=== PATIENT | male | born 1945 | race Caucasian/White ===

== ENCOUNTER 2016-08-01 19:46 | Observation (INO) ==
[2016-08-01] MEDS ORDERED: 0.9 % Sodium Chloride 1,000 ML IVC ONE (20:15)
--- NOTE | 2016-08-01 20:33 | Emergency Department Note ---
Disposition Clinical Impression: Altered mental status Qualifiers: Altered mental status type: disorientation Qualified Code(s): R41.0 - Disorientation, unspecified Disposition: Admitted As Inpatient Condition: Fair Referrals: NO,PCP [Primary Care Provider] - Time of Disposition: 21:23 General Adult HPI - General Stated complaint: confusion Time Seen by Provider: 08/01/16 19:49 Source: EMS Limitations: altered mental status Nursing Notes Reviewed: Yes Vital Signs Reviewed: Yes - History of Present Illness HPI Narrative: 71-year-old with history of confusion. Patient lives at home. Patient was found confused. He was awake alert. He cannot recall any specific event. He is confused to the time of the year. He has no specific pain. Pain Scale: 0 - Related Data Home Medications Medication Instructions Recorded Confirmed Amlodipine Besylate 0 mg PO DAILY 04/15/15 04/15/15 Atenolol [Tenormin] 0 mg PO DAILY 04/15/15 04/15/15 Benazepril HCl [Lotensin] 0 mg PO DAILY 04/15/15 04/15/15 Famotidine [Acid Director Patient [employer] Services] 0 mg PO BID 04/15/15 04/15/15 HYDROcodone/Acet 5/325 mg [[place] 1 tab PO TID 04/15/15 04/15/15 5-325 mg] Pravastatin Sodium 0 mg PO DAILY 04/15/15 04/15/15 Allergies Allergy/AdvReac Type Severity Reaction Status Date / Time No Known Allergies Allergy Verified 04/15/15 09:57 Limitations: ROS unobtainable due to patients medical condition Past Medical History - Past Medical History Medical history: Reports: arthritis, coronary artery disease, hypertension, other Surgical history: Reports: no surgical history Psychiatric history: Reports: no psych history - Social History Smoking Status: Current every day smoker Smokeless Tobacco Status: No Alcohol use: Reports: none Drug use: Reports: none Physical Exam - General Limitations: altered mental status General appearance: alert, in no apparent distress, other - Head Head exam: atraumatic, normocephalic, normal inspection - ENT ENT exam: normal exam, normal oropharynx, mucous membranes moist - Chest Chest inspection: Present: normal inspection, symmetric chest wall rise - Respiratory Respiratory exam: Present: normal lung sounds bilaterally - Cardiovascular Cardiovascular exam: Present: regular rate, normal rhythm, normal heart sounds - Abdominal Exam Abdominal exam: Present: soft, Non-Tender. Absent: tenderness, distention, guarding, rebound, rigidity - Extremities Exam Extremities exam: Present: normal inspection, full ROM. Absent: tenderness, pedal edema - Expanded Lower Extremity Exam Neurovascular/Tendon exam: Absent: motor deficit, sensory deficit, tendon deficit - Back Exam Back exam: Present: normal inspection, full ROM. Absent: tenderness - Neurological Exam Neurological exam: Present: alert, oriented X3 - Expanded Neurological Exam Patient oriented to: Present: person - Psychiatric Psychiatric exam: Present: normal affect - Skin Skin exam: Present: warm, dry, intact, normal color Course Vital Signs Temperature 98.6 F 08/01/16 19:55 Pulse Rate 76 08/01/16 19:55 Respiratory Rate 16 08/01/16 19:55 Blood Pressure 177/81 08/01/16 19:55 O2 Sat by Pulse Oximetry 96 08/01/16 19:55 Temperature 98.6 F 08/01/16 19:55 Pulse Rate 73 08/01/16 21:15 Respiratory Rate 18 08/01/16 21:15 Blood Pressure 146/78 08/01/16 21:15 O2 Sat by Pulse Oximetry 95 08/01/16 21:15 Oxygen Delivery Oxygen Delivery Room Air Medical Decision Making - [facility] Narrative Medical decision making narrative: Diagnosis. Acute confusional state ED course patient was given IV fluids. Ativan 1 mg IV given. This seems to calm the patient down. Plan. Observation. Patient has positive opiates on his drug screen. It was no family member that we can reach. - Lab Data Lab results reviewed: Yes I reviewed the patient's lab results. Result diagrams: 08/01/16 20:22 08/01/16 20:22 Lab Results 08/01/16 08/01/16 08/01/16 Range/Units 20:22 20:22 20:22 WBC 11.5 H (4.3-11.1) K/mcL RBC 4.22 (4.19-5.50) M/mcL Hgb 13.4 (12.9-16.9) g/dL Hct 38.8 (37.5-50.1) % MCV 91.9 (83.0-100.0) fL MCH 31.8 (28.0-33.3) pg MCHC 34.5 (31.6-35.5) g/dL RDW 13.2 (11.5-14.5) % Plt Count 241 (140-400) K/mcL MPV 10.4 (9.4-12.4) fL Immature Gran % 0.6 (0-4) % Seg Neutrophils % 81.1 % Lymphocytes % 11.3 % Monocytes % 5.5 % Eosinophils % 1.3 % Basophils % 0.2 % Neutrophils # 9.3 H (1.6-8.9) K/mcL Lymphocytes # 1.3 (0.6-4.6) K/mcL Monocytes # 0.6 (0.0-1.3) K/mcL Eosinophils # 0.2 (0.0-0.6) K/mcL Basophils # 0.0 (0.0-0.2) K/mcL Sodium 138 (136-145) mEq/L Potassium 4.2 (3.5-4.5) mEq/L Chloride 107 (98-109) mEq/L Carbon Dioxide 18 L (19-29) mEq/L BUN 15 (8-26) mg/dL Creatinine 0.86 (0.72-1.25) mg/dL Est GFR ( Amer) > 60 (> 60) Est GFR (Non-Af Amer) > 60 (> 60) BUN/Creatinine Ratio 17 (6-26) Glucose 95 (70-99) mg/dL Calculated Osmolality 287 (280-300) Calcium 9.5 (8.6-10.8) mg/dL Total Bilirubin 1.0 (0.2-1.2) mg/dL AST 22 (5-34) Units/L ALT 13 (0-55) Units/L Alkaline Phosphatase 66 (38-126) Units/L Serum Total Protein 7.0 (6.0-8.3) g/dL Albumin 3.9 (3.5-5.0) g/dL Globulin 3.1 (2.4-3.5) g/dL Albumin/Globulin Ratio 1.3 (1.1-2.2) Urine Color Dark Yellow (Yellow) Urine Clarity Slightly Cloudy A (Clear) Urine pH 6.0 (5.0-8.0) pH Units Ur Specific [place] 1.025 (1.010-1.025) Urine Protein 100 H (Neg-Trace) mg/dL Urine Glucose (UA) Normal (Normal) mg/dL Urine Ketones Negative (Negative) mg/dL Urine Blood Negative (Negative) Urine Nitrite Negative (Negative) Urine Bilirubin Negative (Negative) Urine Urobilinogen Normal (Normal) mg/dL Ur Leukocyte Esterase Negative (Negative) Urine Microscopic WBC Test Not Performed Amorphous Sediment Few (Few) Ur Culture Indicated? NO (NO) Urine Opiates Screen (Kzqmfl=349) ng/mL Ur Barbiturates Screen (Tzfzyv=433) ng/mL Ur Phencyclidine Scrn (Cutoff=25) ng/mL Ur Amphetamines Screen (Cvwbtz=1404) ng/mL U Benzodiazepines Scrn (Ieivqw=571) ng/mL Urine Cocaine Screen (Cutoff= 300) ng/mL U Marijuana (THC) Screen (Cutoff = 50) ng/mL 08/01/16 Range/Units 20:22 WBC (4.3-11.1) K/mcL RBC (4.19-5.50) M/mcL Hgb (12.9-16.9) g/dL Hct (37.5-50.1) % MCV (83.0-100.0) fL MCH (28.0-33.3) pg MCHC (31.6-35.5) g/dL RDW (11.5-14.5) % Plt Count (140-400) K/mcL MPV (9.4-12.4) fL Immature Gran % (0-4) % Seg Neutrophils % % Lymphocytes % % Monocytes % % Eosinophils % % Basophils % % Neutrophils # (1.6-8.9) K/mcL Lymphocytes # (0.6-4.6) K/mcL Monocytes # (0.0-1.3) K/mcL Eosinophils # (0.0-0.6) K/mcL Basophils # (0.0-0.2) K/mcL Sodium (136-145) mEq/L Potassium (3.5-4.5) mEq/L Chloride (98-109) mEq/L Carbon Dioxide (19-29) mEq/L BUN (8-26) mg/dL Creatinine (0.72-1.25) mg/dL Est GFR ( Amer) (> 60) Est GFR (Non-Af Amer) (> 60) BUN/Creatinine Ratio (6-26) Glucose (70-99) mg/dL Calculated Osmolality (280-300) Calcium (8.6-10.8) mg/dL Total Bilirubin (0.2-1.2) mg/dL AST (5-34) Units/L ALT (0-55) Units/L Alkaline Phosphatase (38-126) Units/L Serum Total Protein (6.0-8.3) g/dL Albumin (3.5-5.0) g/dL Globulin (2.4-3.5) g/dL Albumin/Globulin Ratio (1.1-2.2) Urine Color (Yellow) Urine Clarity (Clear) Urine pH (5.0-8.0) pH Units Ur Specific [place] (1.010-1.025) Urine Protein (Neg-Trace) mg/dL Urine Glucose (UA) (Normal) mg/dL Urine Ketones (Negative) mg/dL Urine Blood (Negative) Urine Nitrite (Negative) Urine Bilirubin (Negative) Urine Urobilinogen (Normal) mg/dL Ur Leukocyte Esterase (Negative) Urine Microscopic WBC Amorphous Sediment (Few) Ur Culture Indicated? (NO) Urine Opiates Screen Positive H (Xeciqa=175) ng/mL Ur Barbiturates Screen Negative (Xjvnsc=504) ng/mL Ur Phencyclidine Scrn Negative (Cutoff=25) ng/mL Ur Amphetamines Screen Negative (Zirzvy=1591) ng/mL U Benzodiazepines Scrn Negative (Suphff=299) ng/mL Urine Cocaine Screen Negative (Cutoff= 300) ng/mL U Marijuana (THC) Screen Negative (Cutoff = 50) ng/mL
[2016-08-01 20:47] LABS: Bilirubin,Urine Negative (Negative); Blood,Urine Negative (Negative); Clarity,Urine Slightly Cloudy (Clear); Glucose,Urine (UA) Normal (Normal); Ketones,Urine Negative (Negative); Leukocyte Esterase,Urine Negative (Negative); Nitrite,Urine Negative (Negative); Protein,Urine 100 mg/dL (Neg-Trace); Specific Gravity,Urine 1.025 (1.010-1.025); Urobilinogen,Urine Normal (Normal)
[2016-08-01 20:48] LABS: Basophils % 0.2 %; Eosinophils # 0.2 K/mcL (0.0-0.6); Eosinophils % 1.3 %; Hematocrit 38.8 % (37.5-50.1); Hemoglobin 13.4 g/dL (12.9-16.9); Immature Granulocytes % 0.6 % (0-4); Lymphocytes # 1.3 K/mcL (0.6-4.6); Lymphocytes % 11.3 %; Mean Corpuscular HGB Conc 34.5 g/dL (31.6-35.5); Mean Corpuscular Hemoglobin 31.8 pg (28.0-33.3); Mean Corpuscular Volume 91.9 fL (83.0-100.0); Mean Platelet Volume 10.4 fL (9.4-12.4); Monocytes # 0.6 K/mcL (0.0-1.3); Monocytes % 5.5 %; Platelet Count 241 K/mcL (140-400); Red Blood Count 4.22 M/mcL (4.19-5.50); Red Cell Distribution Width 13.2 % (11.5-14.5); Segmented Neutrophils % 81.1 %
[2016-08-01 20:51] LABS: Color,Urine Dark Yellow (Yellow); Neutrophils # 9.3 K/mcL (1.6-8.9)
[2016-08-01 20:52] LABS: Amorphous Sediment,Urine Few (Few)
[2016-08-01 20:56] LABS: Alanine Aminotransferase 13 Units/L (0-55); Albumin 3.9 g/dL (3.5-5.0); Albumin/Globulin Ratio 1.3 (1.1-2.2); Alkaline Phosphatase 66 Units/L (38-126); Amphetamine Screen,Urine Negative ng/mL (Cutoff=1000); Aspartate Amino Transferase 22 Units/L (5-34); BUN/Creatinine Ratio 17 (6-26); Barbiturate Screen,Urine Negative ng/mL (Cutoff=200); Benzodiazepines Screen,Urine Negative ng/mL (Cutoff=200); Blood Urea Nitrogen 15 mg/dL (8-26); Calcium 9.5 mg/dL (8.6-10.8); Cannabinoid Screen,Urine Negative ng/mL (Cutoff = 50); Carbon Dioxide 18 mEq/L (19-29); Chloride 107 mEq/L (98-109); Cocaine Screen,Urine Negative ng/mL (Cutoff= 300); Globulin 3.1 g/dL (2.4-3.5); Glucose 95 mg/dL (70-99); Opiate Screen,Urine Positive ng/mL (Cutoff=300); Osmolality,Calculated 287 (280-300); Phencyclidine Screen,Urine Negative ng/mL (Cutoff=25); Potassium 4.2 mEq/L (3.5-4.5); Sodium 138 mEq/L (136-145); eGFR For African Americans > 60 (> 60); eGFR For Non-African Americans > 60 (> 60)
[2016-08-01] MEDS ORDERED: *HR* LORazepam 1 MG TABLET PO ONE (21:12)
[2016-08-01] MEDS ORDERED: *HR* LORazepam 2 MG/ML VIAL IVP ONE (21:19)
[2016-08-01] MEDS ORDERED: Naloxone 0.4 MG/ML INJ IVP PRN (22:22)
[2016-08-02] MEDS: 0.9 % Sodium Chloride w KCl 20 MEQ/1,000 ML MLS IVC SCH ×2 (00:57→08:06)
[2016-08-02] MEDS ORDERED: Haloperidol Lactate 5 MG/ML VIAL IM ONE ×2 (02:09→08:39)
[2016-08-02] MEDS ORDERED: Haloperidol Lactate 5 MG/ML VIAL ONE (02:12)
[2016-08-02 06:04] LABS: BUN/Creatinine Ratio 13 (6-26); Blood Urea Nitrogen 9 mg/dL (8-26); Carbon Dioxide 22 mEq/L (19-29); Chloride 104 mEq/L (98-109); Glucose 95 mg/dL (70-99); Osmolality,Calculated 280 (280-300); Potassium 3.6 mEq/L (3.5-4.5); Sodium 136 mEq/L (136-145); eGFR For African Americans > 60 (> 60); eGFR For Non-African Americans > 60 (> 60)
[2016-08-02 06:07] LABS: Basophils % 0.2 %; Eosinophils # 0.2 K/mcL (0.0-0.6); Eosinophils % 1.7 %; Hematocrit 38.3 % (37.5-50.1); Hemoglobin 13.3 g/dL (12.9-16.9); Immature Granulocytes % 0.4 % (0-4); Lymphocytes # 1.1 K/mcL (0.6-4.6); Lymphocytes % 11.1 %; Mean Corpuscular HGB Conc 34.7 g/dL (31.6-35.5); Mean Corpuscular Hemoglobin 31.8 pg (28.0-33.3); Mean Corpuscular Volume 91.6 fL (83.0-100.0); Mean Platelet Volume 10.8 fL (9.4-12.4); Monocytes # 0.6 K/mcL (0.0-1.3); Platelet Count 226 K/mcL (140-400); Red Blood Count 4.18 M/mcL (4.19-5.50); Red Cell Distribution Width 13.1 % (11.5-14.5); Segmented Neutrophils % 80.6 %
--- NOTE | 2016-08-02 10:43 | Electrocardiograph Report ---
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
--- NOTE | 2016-08-02 11:54 | Internal Med History&Physical ---
Date of Encounter: 08/02/16 Time of Encounter: 11:48 Internal Medicine - H&P: HPI Chief complaint: confused Admitted From: Emergency Dept Plans for Post Hospital Care: Home (not sure of a home) History of present illness: Mr. Johnson is a 71 year old male Past Med Surg Social Fam HX - Past Medical History Medical history: arthritis, coronary artery disease, hypertension, other Psychiatric history: no psych history - Past Surgical History Surgical History: no surgical history - Social History Smoking Status: Current every day smoker Smokeless Tobacco Status: No Alcohol use: none Drug use: none - Family History Sister History Unknown: Yes Name: sarah mccormick Internal Medicine - H&P: Meds Amlodipine Besylate 10 mg PO DAILY 04/15/15 [History] Atenolol [Tenormin] 50 mg PO DAILY 04/15/15 [History] Benazepril HCl [Lotensin] 40 mg PO DAILY 04/15/15 [History] Famotidine [Acid Postal Service Clerk] 20 mg PO BID 04/15/15 [History] HYDROcodone/Acet 5/325 mg [[place] 5-325 mg] 1 tab PO TID 04/15/15 [History] Pravastatin Sodium 20 mg PO DAILY 04/15/15 [History] Allergies Amoxicillin Allergy (Unknown, Verified 08/02/16 00:49) unknown azithromycin Allergy (Unknown, Verified 08/02/16 00:47) unknown Cortisone Allergy (Unknown, Verified 08/02/16 00:48) unknown diltiazem Allergy (Unknown, Verified 08/02/16 00:49) unknown All Systems PM: A 10-system review of systems was performed and is negative for pertinent findings except as documented above in the HPI. - Neurological Neurological ROS: behavioral changes, confusion - Constitutional Vitals: Temp Pulse Resp BP Pulse Ox 97.5 F L 73 16 157/84 96 08/02/16 08:00 08/02/16 08:00 08/02/16 08:00 08/02/16 08:00 08/02/16 08:00 General appearance: Present: disheveled - Head Head exam: Present: atraumatic, normal inspection, normocephalic - Neck Neck exam general surgery: Present: supple, trachea midline. Absent: lymphadenopathy - Respiratory Respiratory exam: Present: CTAB. Absent: accessory muscle use, rales, rhonchi, wheezes - Cardiovascular Cardiovascular exam: Present: RRR, +S1, +S2. Absent: diastolic murmur, gallop, rubs, systolic murmur - Extremities Exam Extremities exam: Present: normal inspection, warm - Psychiatric Psychiatric exam: Present: agitated (Patient is very confused unable to really give me his home address. He is agitated continuing to get up and move the conversation the IV.Hep well him right now will try to have the staff psychologist see him) - Skin Skin exam: Present: excoriation, normal color (Patient has multiple scratch chavarria. Atenolol small bruises which makes me think that he has been falling.) Internal Med - H&P Results - Labs CBC & Chem 7: 08/02/16 05:40 08/02/16 05:40 Labs: Short CBC 08/02/16 Range/Units 05:40 WBC 9.9 (4.3-11.1) K/mcL Hgb 13.3 (12.9-16.9) g/dL Hct 38.3 (37.5-50.1) % Plt Count 226 (140-400) K/mcL Neutrophils # 8.0 (1.6-8.9) K/mcL BMP 08/02/16 05:40 Sodium 136 Potassium 3.6 Chloride 104 Carbon Dioxide 22 BUN 9 Creatinine 0.70 L Glucose 95 Calcium 9.0 - VTE Reasons for not Prescribing Prophylaxis: Treatment not Indicated - Low risk for VTE
--- NOTE | 2016-08-02 16:30 | Discharge Summary ---
Date of Encounter: 08/02/16 Time of Encounter: 16:26 - Discharge Diagnosis (1) Dementia Priority: Primary Status: Acute Comments: Patient is bili septated diabetes [facility] in [place] for evaluation of agitation and aggressiveness. Qualifiers: Dementia type: Alzheimer's disease Qualified Code(s): G30.0 - Alzheimer's disease with early onset; F02.81 - Dementia in other diseases classified elsewhere with behavioral disturbance - Discharge Medications Home Medications: Amlodipine Besylate 10 mg PO DAILY 04/15/15 [History] Atenolol [Tenormin] 50 mg PO DAILY 04/15/15 [History] Benazepril HCl [Lotensin] 40 mg PO DAILY 04/15/15 [History] Famotidine [Acid Tailing Hand] 20 mg PO BID 04/15/15 [History] HYDROcodone/Acet 5/325 mg [[place] 5-325 mg] 1 tab PO TID 04/15/15 [History] Pravastatin Sodium 20 mg PO DAILY 04/15/15 [History] Allergies/Adverse Reactions: Allergies Amoxicillin Allergy (Unknown, Verified 08/02/16 00:49) unknown azithromycin Allergy (Unknown, Verified 08/02/16 00:47) unknown Cortisone Allergy (Unknown, Verified 08/02/16 00:48) unknown diltiazem Allergy (Unknown, Verified 08/02/16 00:49) unknown Procedures/tests Complete & Pending: Procedures Performed prior 72 hours Category Date Time Status ECG 12 lead ECG [ECG] Routine Y 08/01/16 19:55 Completed Date of admission: 08/01/16 22:32 Primary care physician: PCP NO Consults: 08/02/16 11:56 Consult to Psychology [CONS] Routine Consulting Provider: Corinne Rogers Reason for Consult: pt confused and agitated Time Notified: 12:00 Call Completed: No Discharging clinician: Gaurang Luis Anticipated date of discharge: 08/02/16 - Patient Status Disposition: Transfer Psychiatric Hosp Condition: Fair Functional capacity at discharge: bed bound Overall status at discharge: patient is not back to baseline - Discharge Instructions Follow Up With: Alma Butt BLOWER MECHANIC [Advanced Practice Nurse] - Forms: ED Satisfaction Letter - Diet and Activity Activity: other (Patient will be evaluated after treatment) Diet: advance to your usual diet Interval History: Patient apparently was doing doughnuts in a parking lot. When he persisted the police were called and found him very confused and disoriented. They subsequently called the squad transported to the emergency room. Now come to find out there is a long history recently of confusion disorientation and not knowing where he was or what he was doing. Apparently showed up at his medical care provider's office yesterday without appointment did not know why. He really cannot tell you his address and name. He does have a home. His daughter was in the process of getting guardianship but had not finished it. Apparently he was driving a car that was not incapacitated. He had another car that he regularly drove that was incapacitated. But the patient called the a [employer] truck and had car taken to the dealership where they found out that he was incompetent. And told him that car was not ready to be fixed because it needed a period .Dr. Bry Centeno's office told me that he has a diagnosis of Alzheimer's dementia. So he is going to go to [facility] in order to possibly adjust medications. part Hospital course: Mr. Johnson is a 71 year old male He has been accepted for the Alzheimer's unit. For evaluation and treatment - Time Spent with Patient Total time spent providing and/or coordinating discharge services: Greater than 30 minutes - Constitutional Vitals: Temp Pulse Resp BP Pulse Ox 98.5 F 76 16 176/66 96 08/02/16 12:00 08/02/16 12:00 08/02/16 12:00 08/02/16 12:00 08/02/16 12:00 General appearance: Present: disheveled - Head Head exam: Present: atraumatic, normal inspection, normocephalic - Neck Neck exam general surgery: Present: supple, trachea midline. Absent: lymphadenopathy - Respiratory Respiratory exam: Present: CTAB. Absent: accessory muscle use, rales, rhonchi, wheezes - Cardiovascular Cardiovascular exam: Present: RRR, +S1, +S2. Absent: diastolic murmur, gallop, rubs, systolic murmur - GI/Abdominal GI/Abdominal exam: Present: normal bowel sounds, soft, no peritoneal signs. Absent: distended, tenderness - VTE Reasons for not Prescribing Prophylaxis: Treatment not Indicated - Low risk for VTE
[2016-08-02 16:57] VITALS: BP 175/85
== END 2016-08-02 18:00 ==
LOC: EMEROOGRE 19:46 → INPGRE 19:46
PROVIDERS: ADMIT Internal Medicine; ATTEND Internal Medicine